=== PATIENT | female | born 1985 | race Caucasian/White ===

== ENCOUNTER 2017-03-22 11:32 | Emergency (ER) | payer SELFPAY ==
[~2017-03-22] VITALS: Ht 157.5 cm; Wt 73.0 kg
[2017-03-22 12:10] VITALS: BP 118/72
--- NOTE | 2017-03-22 13:50 | NUR ---
PATIENT LEFT WITHOUT BEING SEEN BY DR. MATHEWS. NO FURTHER CARE PROVIDED FOR PATIENT.
== END 2017-03-22 13:50 | disposition left against medical advice (07) ==
LOC: MED 11:32
DX: S01.111A Laceration without foreign body of right eyelid and periocular area, initial encounter (principal); Z53.21 Procedure and treatment not carried out due to patient leaving prior to being seen by health care provider; X58.XXXA Exposure to other specified factors, initial encounter; Y93.89 Activity, other specified; Y92.89 Other specified places as the place of occurrence of the external cause; Y99.8 Other external cause status